=== PATIENT | male | born 1995 | race African-American/Black ===

== ENCOUNTER 2016-11-23 09:42 | Emergency (ER) | payer OTHER ==
[~2016-11-23] VITALS: Ht 182.9 cm; Wt 66.0 kg
[~2016-11-23 09:42] MED LIST: IBUP800T23 PO
[2016-11-23 09:49] VITALS: BP 135/79; PULSE 76; RESP 16; TEMP 98.5; O2SAT 98
[2016-11-23 10:21] LABS: BLOOD, URINE NEG (NEG); GLUCOSE,URINE NEG (NEG); KETONE, URINE NEG (NEG); NITRITE,URINE NEG (NEG); PH, URINE 6.5 (5.0-8.5)
[2016-11-23 10:28] LABS: COMMENT (UR) CULT NOT INDICATED; CULTURE IF INDICATED CULT NOT INDICATED; METHOD OF COLLECTION CLEAN CATCH; RBC, URINE 0-3 /hpf (0-3); SQUAMOUS EPITHELIAL CELL URINE 0-5 /hpf (0-5); URINE COLOR YELLOW (YELLW/STRAW); WBC, URINE 0-2 /hpf (0-5)
[2016-11-23] MEDS ORDERED: SODIUM CHLOR 0.9% 1000 ML INJ 1,000 ML IV SCH (10:41)
[2016-11-23] MEDS ORDERED: PANTOPRAZOLE SODIUM 40 MG VIAL IVP ONE (10:45)
--- NOTE | 2016-11-23 10:48 | PD ---
HPI Chief Complaint: Abdominal Pain Time Seen by Provider: 10:36 Travel History International Travel<30 days: No Contact w/Intl Traveler<30days: No Traveled to known affect area: No History of Present Illness HPI 21-year-old male complains of abdominal pain. Patient states that the pain started a week ago. Patient states the pain is cramping pain localized to the upper abdomen. Patient denies any pain radiation. Patient denies any nausea vomiting diarrhea. Patient denies any fever chills. Patient denies any dysuria or frequency. Patient denies any back pain. Patient denies any previous abdominal pain problem. On a scale of 1-10 the pain is a 5. Patient status post inguinal hernia repair in the past. PFSH Past Medical History Asthma: Yes (CHILDHOOD) Diminished Hearing: No Immunizations Current: Yes Tetanus Vaccination: Unknown Past Surgical History Abdominal Surgery: Yes (HERNIA) Other Surgery: Yes (INGUINAL HERNIA REPAIR) Social History Alcohol Use: Yes (OCC) Tobacco Use: Yes (11/21 PPD) Substance Use: No Allergies-Medications (Allergen,Severity, Reaction): Coded Allergies: No Known Allergies (Verified , 11/23/16) Reported Meds & Prescriptions Reported Meds & Active Scripts Active No Active Prescriptions or Reported Medications Review of Systems General / Constitutional: No: Fever Eyes: No: Visual changes HENT: No: Headaches Cardiovascular: No: Chest Pain or Discomfort Respiratory: No: Shortness of Breath Gastrointestinal: Positive: Abdominal Pain Genitourinary: No: Dysuria Musculoskeletal: No: Pain Skin: No Rash Neurologic: No: Weakness Psychiatric: No: Depression Endocrine: No: Polydipsia Hematologic/Lymphatic: No: Easy Bruising Physical Exam Narrative GENERAL: Well-nourished, well-developed patient. SKIN: Warm and dry. HEAD: Normocephalic. EYES: No scleral icterus. No injection or drainage. NECK: Supple, trachea midline. No JVD or lymphadenopathy. CARDIOVASCULAR: Regular rate and rhythm without murmurs, gallops, or rubs. RESPIRATORY: Breath sounds equal bilaterally. No accessory muscle use. GASTROINTESTINAL: Abdomen soft, nondistended. Patient has mild tenderness on palpation upper abdomen epigastric area. No rebound tenderness. No mass. MUSCULOSKELETAL: No cyanosis, or edema. BACK: Nontender without obvious deformity. No CVA tenderness. Data Data Last Documented VS Vital Signs Date Time Temp Pulse Resp B/P Pulse Ox O2 Delivery O2 Flow Rate FiO2 11/23/16 10:57 16 97 Room Air 11/23/16 10:57 63 129/75 11/23/16 09:49 98.5 Orders Urinalysis - C+S If Indicated (11/23/16 10:08) Complete Blood Count With Diff (11/23/16 10:41) Comprehensive Metabolic Panel (11/23/16 10:41) Lipase (11/23/16 10:41) Ct Abd/Pel W Iv Contrast(Rout) (11/23/16 10:41) Iv Access Insert/Monitor (11/23/16 10:41) Ecg Monitoring (11/23/16 10:41) Oximetry (11/23/16 10:41) Pantoprazole Inj (Protonix Inj) (11/23/16 10:45) Sodium Chlor 0.9% 1000 Ml Inj (Ns 1000 M (11/23/16 10:41) Iohexol 300 Inj (Rad Ct) (Omnipaque 300 (11/23/16 11:30) Labs Laboratory Tests Test 11/23/16 11/23/16 10:13 10:35 Urine Collection Type CLEAN CATCH Urine Color YELLOW Urine Turbidity CLEAR Urine pH 6.5 Urine Specific [place] 1.022 Urine Protein NEG mg/dL Urine Glucose (UA) NEG mg/dL Urine Ketones NEG mg/dL Urine Occult Blood NEG Urine Nitrite NEG Urine Bilirubin NEG Urine Leukocyte Esterase NEG Urine RBC 0-3 /hpf Urine WBC 0-2 /hpf Urine Squamous Epithelial 0-5 /hpf Cells Microscopic Urinalysis Comment CULT NOT INDICATED Urine Collection Time 10:13 White Blood Count 4.7 TH/MM3 Red Blood Count 5.10 MIL/MM3 Hemoglobin 15.0 GM/DL Hematocrit 43.5 % Mean Corpuscular Volume 85.4 FL Mean Corpuscular Hemoglobin 29.4 PG Mean Corpuscular Hemoglobin 34.4 % Concent Red Cell Distribution Width 13.0 % Platelet Count 163 TH/MM3 Mean Platelet Volume 9.4 FL Neutrophils (%) (Auto) 54.3 % Lymphocytes (%) (Auto) 34.5 % Monocytes (%) (Auto) 7.3 % Eosinophils (%) (Auto) 2.1 % Basophils (%) (Auto) 1.8 % Neutrophils # (Auto) 2.6 TH/MM3 Lymphocytes # (Auto) 1.6 TH/MM3 Monocytes # (Auto) 0.3 TH/MM3 Eosinophils # (Auto) 0.1 TH/MM3 Basophils # (Auto) 0.1 TH/MM3 CBC Comment DIFF FINAL Differential Comment Sodium Level 142 MEQ/L Potassium Level 3.9 MEQ/L Chloride Level 104 MEQ/L Carbon Dioxide Level 32.3 MEQ/L Anion Gap 6 MEQ/L Blood Urea Nitrogen 18 MG/DL Creatinine 1.30 MG/DL Estimat Glomerular Filtration 84 ML/MIN Rate Random Glucose 93 MG/DL Calcium Level 8.9 MG/DL Total Bilirubin 0.9 MG/DL Aspartate Amino Transf 21 U/L (AST/SGOT) Alanine Aminotransferase 20 U/L (ALT/SGPT) Alkaline Phosphatase 65 U/L Total Protein 7.8 GM/DL Albumin 4.0 GM/DL Lipase 145 U/L [facility] Medical Decision Making Medical Screen Exam Complete: Yes Emergency Medical Condition: Yes Interpretation(s) 11:52 AM. CBC within normal limit. CMP within normal limit. UA is negative. Differential Diagnosis Differential diagnosis including gastritis, PUD, hepatitis, cholecystitis, colitis, UTI, pyelonephritis, nephrolithiasis, appendicitis. Narrative Course 21-year-old male with upper abdominal pain one week. Normal saline solution 1 25 cc an hour. Protonix 40 mg IV. Diagnosis Primary Impression: Gastritis Qualified Code: K29.00 - Acute gastritis without hemorrhage, unspecified gastritis type Patient Instructions: General Instructions Med/Other Pt SpecificInfo: Prescription(s) given Scripts Sucralfate (Carafate)1 Gm Tab1 Gm PO QID #120 TAB On empty stomach Prov:Daniel Vila MD 11/23/16 Pantoprazole (Protonix)20 Mg Tab20 Mg PO DAILY #30 TAB Prov:Daniel Vila MD 11/23/16 Disposition: 01 DISCHARGE HOME Condition: Stable Daniel Vila MD Nov 23, 2016 10:48
[2016-11-23 10:50] LABS: AUTOMATED NEUTROPHIL # 2.6 TH/MM3 (1.8-7.7); BASOPHIL # 0.1 TH/MM3 (0-0.2); BASOPHIL % 1.8 % (0.0-2.0); EOSINOPHIL # 0.1 TH/MM3 (0-0.4); EOSINOPHIL % 2.1 % (0.0-4.0); HEMATOCRIT 43.5 % (39.0-51.0); HEMO FLAGS DIFF FINAL; LYMPH % 34.5 % (9.0-44.0); LYMPHOCYTE # 1.6 TH/MM3 (1.0-4.8); MEAN CELL VOLUME 85.4 FL (80.0-100.0); MEAN CORPUSCULAR HEMOGLOBIN 29.4 PG (27.0-34.0); MEAN CORPUSCULAR HGB CONC 34.4 % (32.0-36.0); MONO % 7.3 % (0.0-8.0); NEUT % 54.3 % (16.0-70.0); PLATELET COUNT 163 TH/MM3 (150-450); WHITE BLOOD COUNT 4.7 TH/MM3 (4.0-11.0)
[2016-11-23 10:57] VITALS: BP 129/75; PULSE 63; RESP 16; O2SAT 97
[2016-11-23 10:59] LABS: CHLORIDE 104 MEQ/L (98-107); POTASSIUM 3.9 MEQ/L (3.5-5.1); SODIUM (NA) 142 MEQ/L (136-145)
[2016-11-23 11:03] LABS: ANION GAP 6 MEQ/L (5-15); BICARBONATE 32.3 MEQ/L (21.0-32.0); BLOOD UREA NITROGEN 18 MG/DL (7-18)
[2016-11-23 11:05] LABS: ALT (GPT) 20 U/L (12-78)
[2016-11-23 11:06] LABS: AST (GOT) 21 U/L (15-37); GLOMERULAR FILTRATION RATE 84 ML/MIN (>89)
[2016-11-23 11:07] LABS: TOTAL BILIRUBIN ADULT 0.9 MG/DL (0.2-1.0)
[2016-11-23 11:08] LABS: ALKALINE PHOSPHATASE 65 U/L (45-117)
[2016-11-23] MEDS ORDERED: IOHEXOL 300 MG/ML 100 ML BTL (for Rad CT) IV ONE (11:30)
--- NOTE | 2016-11-23 11:48 | RADHPO ---
EXAM DATE/TIME: 11/23/2016 11:22 [place] COMPARISON: No previous studies available for comparison. INDICATIONS : Upper abdominal pain for one week. IV CONTRAST: 90 cc Omnipaque 300 (iohexol) IV ORAL CONTRAST: No oral contrast ingested. RADIATION DOSE: 5.22 CTDIvol (mGy) MEDICAL HISTORY : None SURGICAL HISTORY : Inguinal hernia repair. ENCOUNTER: Initial ACUITY: 1 week PAIN SCALE: 2/10 LOCATION: upper quadrant TECHNIQUE: Volumetric scanning of the abdomen and pelvis was performed. Using automated exposure control and ad justment of the mA and/or kV according to patient size, radiation dose was kept as low as reasonably achievable to obtain optimal diagnostic quality images. FINDINGS: LOWER LUNGS: The visualized lower lungs are clear. LIVER: Homogeneous density without lesion. There is no dilation of the biliary tree. No calcified gallston es. SPLEEN: Normal size without lesion. PANCREAS: Within normal limits. KIDNEYS: Normal in size and shape. There is no mass, stone or hydronephrosis. ADRENAL GLANDS: Within normal limits. VASCULAR: There is no aortic aneurysm. BOWEL/MESENTERY: The stomach, small bowel, and colon demonstrate no acute abnormality. There is no free intraperitone al air or fluid. ABDOMINAL WALL: Within normal limits. RETROPERITONEUM: There is no lymphadenopathy. BLADDER: No wall thickening or mass. REPRODUCTIVE: Within normal limits. INGUINAL: There is no lymphadenopathy or hernia. MUSCULOSKELETAL: Within normal limits for patient age. CONCLUSION: Normal examination. Charlie Wells MD on November 23, 2016 at 11:44 Board Certified Radiologist. This report was verified electronically.
[2016-11-23] MEDS ORDERED: CARA1TAB6 PO (11:56)
[2016-11-23] MEDS ORDERED: PANT20 PO (11:56)
== END 2016-11-23 12:12 | disposition home or self-care (01) ==
LOC: PHED 09:42 → PHEFT 12:12
DX: K29.70 Gastritis, unspecified, without bleeding (principal); F17.210 Nicotine dependence, cigarettes, uncomplicated
CPT/HCPCS: 74177; 80053; 81001; 83690; 85025; 96361; 96374; 99284; C9113; J7030; Q9967

== ENCOUNTER 2017-07-30 10:46 | Emergency (ER) | payer OTHER ==
[~2017-07-30] VITALS: Ht 182.9 cm; Wt 70.0 kg
[~2017-07-30 10:46] MED LIST changes: +CARA1TAB6 PO; -IBUP800T23 PO; +PANT20 PO
[2017-07-30 10:47] VITALS: BP 137/78; PULSE 86; RESP 20; TEMP 98.1; O2SAT 99
[2017-07-30] MEDS ORDERED: AMOX500C PO (11:05)
--- NOTE | 2017-07-30 11:09 | PD ---
HPI Chief Complaint: ENT Complaint Time Seen by Provider: 11:04 Travel History International Travel<30 days: No Contact w/Intl Traveler<30days: No Traveled to known affect area: No History of Present Illness HPI 22-year-old male presents to the emergency Department with complaint of sore throat since last night. Denies lump in throat, difficulty swallowing, unusual drooling. Reports painful swallowing. Denies fever, vomiting, headache, abdominal pain, nasal congestion, ear pain, cough. Has not taken any medications or treatments to alleviate symptoms. Symptoms are mild in severity. No one else with similar symptoms. Has no other medical complaints. No known allergies. No other modifying factors or associated signs and symptoms. PFSH Past Medical History Asthma: Yes (CHILDHOOD) Diminished Hearing: No Immunizations Current: Yes Past Surgical History Abdominal Surgery: Yes (HERNIA) Other Surgery: Yes (INGUINAL HERNIA REPAIR) Social History Alcohol Use: Yes (OCC) Tobacco Use: Yes (1/2 PPD) Substance Use: No Allergies-Medications (Allergen,Severity, Reaction): Coded Allergies: No Known Allergies (Verified , 07/30/17) Reported Meds & Prescriptions Reported Meds & Active Scripts Active Amoxicillin 500 Mg Cap 500 Mg PO BID 10 Days Carafate (Sucralfate) 1 Gm Tab 1 Gm PO QID On empty stomach Protonix (Pantoprazole Sodium) 20 Mg Tab 20 Mg PO DAILY Review of Systems Except as stated in HPI: all other systems reviewed are Neg Physical Exam Narrative GENERAL: Well-nourished, well-developed black male patient, in no acute distress SKIN: Warm and dry. No rash. HEAD: Atraumatic. Normocephalic. EYES: Pupils equal and round at 3 mm with brisk reaction. No scleral icterus. No injection or drainage. ENT: Mucosa pink and dry. Pharynx with 2+ tonsils; with erythema, exudate, and edema. No Uvular edema. No uvular, palatal, or tonsillar deviation. Airway patent. Voice is normal. EARS: Bilateral pinnae and external canals appear within normal limits. Bilateral tympanic membranes without erythema, dullness or perforation.. NECK: Trachea midline. Anterior cervical lymphadenopathy and tenderness. CARDIOVASCULAR: Regular rate. RESPIRATORY: No accessory muscle use. GASTROINTESTINAL: Flat. MUSCULOSKELETAL: No obvious deformities. No clubbing. No cyanosis. No edema. NEUROLOGICAL: Awake and alert. Oriented 3. No obvious cranial nerve deficits. Motor grossly within normal limits. Normal speech. Moves all extremities. PSYCHIATRIC: Appropriate mood and affect; insight and judgment normal. Data Data Last Documented VS Vital Signs Date Time Temp Pulse Resp B/P (MAP) Pulse Ox O2 Delivery O2 Flow Rate FiO2 07/30/17 11:35 07/30/17 10:47 98.1 86 20 99 Room Air MDM Medical Decision Making Medical Screen Exam Complete: Yes Emergency Medical Condition: Yes Medical Record Reviewed: Yes Differential Diagnosis Strep pharyngitis, viral pharyngitis, less likely peritonsillar abscess Narrative Course 22-year-old male physical exam consistent with exudative pharyngitis. Patient is afebrile and nontoxic-appearing. Denies fever, vomiting. Denies lump in throat, difficulty swallowing, unusual drooling. A prescription of amoxicillin was supplied for home. Instructed patient to follow up with primary care provider. Patient verbalizes understanding and agreement with treatment plan. Patient is medically cleared and stable for discharge. Discussed reasons to return to the emergency department. Patient agrees with treatment plan. The patients vital signs are stable and the patient is stable for outpatient follow- up and treatment. Patient discharged home, stable and in no acute distress. Diagnosis Primary Impression: Exudative pharyngitis Referrals: Primary Care Physician Patient Instructions: General Instructions, Pharyngitis (ED) Additional Instructions: Take Antibiotics as prescribed and complete full course of antibiotics Throw away and change your toothbrush 24 hours after starting antibiotics Get plenty of sleep/rest Rest your voice Drink plenty of fluids to prevent dehydration Use warm saltwater gargles to soothe throat pain Use an air humidifier/turn off ceiling fans Use throat lozenges as needed for sore throat Use ibuprofen or acetaminophen as needed to relieve pain and fever Follow-up with your primary care provider within 2-4 days Return immediately to the emergency department with worsening of symptoms Med/Other Pt SpecificInfo: Prescription(s) given Scripts Amoxicillin (Amoxicillin) 500 Mg Cap 500 MG PO BID for Infection for 10 Days, CAP 0 Refills Prov: Sonia King 07/30/17 Disposition: 01 DISCHARGE HOME Condition: Stable Sonia King Jul 30, 2017 11:09
== END 2017-07-30 11:36 | disposition home or self-care (01) ==
LOC: NEPK 10:46
DX: J02.9 Acute pharyngitis, unspecified (principal); F17.200 Nicotine dependence, unspecified, uncomplicated
CPT/HCPCS: 99283